=== PATIENT | female | born 1960 | race Caucasian/White ===

== ENCOUNTER 2020-08-01 10:09 | Inpatient (IN) | payer OTHER ==
[~2020-08-01] VITALS: Ht 165.1 cm; Wt 91.2 kg
--- NOTE | 2020-08-01 10:55 | NUR ---
THIS IS A 60 YR OLD FEMALE WHO STATES WAKING UP TUESDAY MORNING SHE BEGAN TO HAVE WHAT SHE DESCRIBES MISSING FEILDS OF VISION ON THE LEFT SIDE OF EACH EYE WITH ASSOCIATED HEADACHE. ALL GROSS [employer]OR AND SENSATION INTACT. NO MOTOR DEFICITS NOTED ON ASSESSMENT.
[2020-08-01 11:03] LABS: BASOPHILS % (AUTO) 1 % (0-1); EOSINOPHILS % (AUTO) 1 % (1-7); LYMPHOCYTES % (AUTO) 35 % (22-44); MEAN CORPUSCULAR HEMOGLOBIN 31.4 pg (27.0-34.8); MEAN CORPUSCULAR HGB CONC 34.7 g/dL (32.4-35.8); MONOCYTES % (AUTO) 5 % (2-9); NEUTROPHILS % (AUTO) 58 % (42-75); PLATELET COUNT 248 x10^3/uL (130-400); RED BLOOD COUNT 5.43 x10^6/uL (3.82-5.3); RED CELL DISTRIBUTION WIDTH 13.1 % (9.6-15.2)
[2020-08-01 11:13] LABS: MD NO
[2020-08-01 11:15] LABS: ALBUMIN 3.9 g/dL (3.4-5.0); ANION GAP 5 mmol/L (5-15); CALCIUM 9.1 mg/dL (8.5-10.1); CHLORIDE 109 mmol/L (98-107); CREATININE 1.01 mg/dL (0.55-1.02)
[2020-08-01 11:16] LABS: INTERNATIONAL NORMALIZED RATIO 1.01 (0.93-1.1); PROTHROMBIN TIME 10.8 Seconds (9.6-11.5)
--- NOTE | 2020-08-01 11:26 | NUR ---
PT TO CT NOW
--- NOTE | 2020-08-01 11:41 | NUR ---
PT UP TO RESTROOM. AMBULATES WITH A STEADY GAIT. UA CUP PROVIDED.
[2020-08-01] MEDS ORDERED: OMNIPAQUE 350 MG/ML, 100ML BOTTLE ONE (12:08)
--- NOTE | 2020-08-01 12:28 | NUR ---
pt resting comfortably. all questions answered for pt. pt updated on status and pending imaging. no wants or needs expressed.
[2020-08-01] MEDS ORDERED: ASPIRIN 325 MG TABLET PO STA (13:40)
[2020-08-01] MEDS ORDERED: ENALAPRILAT 1.25 MG/ML, 2ML IV PRN ×2 (14:00→20:00)
[2020-08-01] MEDS ORDERED: BISACODYL 10 MG SUPP PR PRN (14:00)
[2020-08-01] MEDS ORDERED: ONDANSETRON 2MG/ML, 2ML IVPush PRN (14:00)
[2020-08-01] MEDS ORDERED: ONDANSETRON 4 MG TABLET PO PRN (14:00)
[2020-08-01] MEDS ORDERED: POTASSIUM CHLORIDE 20 MEQ in SODIUM CHLORIDE 0.9% 1,000 ML IV SCH (14:00)
[2020-08-01] MEDS ORDERED: DOCUSATE 100 MG CAPSULE PO PRN (14:00)
[2020-08-01] MEDS ORDERED: LABETALOL 5MG/ML, 20ML IV PRN ×2 (14:00→14:30)
[2020-08-01] MEDS ORDERED: POLYETHYLENE GLYCOL 17 GM PACKET PO PRN (14:00)
[2020-08-01 14:09] VITALS: BP 152/77
[2020-08-01] MEDS: NICOTINE 14MG/24 HR PATCH.TD24 TD SCH (14:36)
[2020-08-01] MEDS: ACETAMINOPHEN 650 MG/20.3 ML UDC PO PRN (14:36)
[2020-08-01] MEDS: ENOXAPARIN 40 MG/0.4 ML SQ SCH (14:38)
[2020-08-01 19:59] VITALS: BP 161/80
[2020-08-01] MEDS ORDERED: IBUPROFEN 600 MG TABLET PO SCH (21:00)
[2020-08-01] MEDS ORDERED: ATORVASTATIN 40 MG TABLET PO SCH (21:00)
[2020-08-01] MEDS ORDERED: GABAPENTIN 300 MG CAPSULE PO SCH (21:00)
[2020-08-02 02:10] VITALS: BP 147/91
[2020-08-02 05:20] LABS: CHOL/HDL RATIO 6.4; LDL/HDL RATIO 4.6 (0.5-3.0)
[2020-08-02 06:50] VITALS: BP 146/88
[2020-08-02] MEDS: ACETAMINOPHEN 650 MG/20.3 ML UDC PO PRN ×2 (08:50→15:47)
[2020-08-02] MEDS ORDERED: ASPIRIN 81 MG TABLET CHEW PO/NG SCH (09:00)
[2020-08-02 12:44] VITALS: BP 130/83
[2020-08-02] MEDS: ENOXAPARIN 40 MG/0.4 ML SQ SCH (14:00)
[2020-08-02] MEDS: NICOTINE 14MG/24 HR PATCH.TD24 TD SCH (15:42)
[2020-08-02] MEDS ORDERED: CLOP75TA52 PO (17:45)
[2020-08-02] MEDS ORDERED: ATOR40TA78 PO (17:45)
[2020-08-02] MEDS ORDERED: ASPI-963 PO/NG (17:45)
== END 2020-08-02 18:35 | disposition home or self-care (01) | DRG 66 ==
LOC: ED 12:45 → EDIP 13:00 → 4WST 14:07
PROVIDERS: ADMIT Hospitalist; ATTEND Family Medicine
DX: I63.531 Cerebral infarction due to unspecified occlusion or stenosis of right posterior cerebral artery (principal); I10 Essential (primary) hypertension; H53.462 Homonymous bilateral field defects, left side; G62.9 Polyneuropathy, unspecified; F17.210 Nicotine dependence, cigarettes, uncomplicated; E87.6 Hypokalemia; D75.1 Secondary polycythemia; Z86.73 Personal history of transient ischemic attack (TIA), and cerebral infarction without residual deficits; Z80.1 Family history of malignant neoplasm of trachea, bronchus and lung; Z80.0 Family history of malignant neoplasm of digestive organs; Z88.5 Allergy status to narcotic agent
CPT/HCPCS: 36415; 70450; 70496; 70498; 70551; 80048; 80061; 82040; 83036; 85025; 85610; 85730; 93005; 93306; G0378; J1650; J3480; Q9967; 92523-GN; J7030